=== PATIENT | male | born 1990 | race Two or more races ===

== ENCOUNTER 2022-01-25 08:47 | Emergency (ER) | payer MEDICAID, OTHER ==
[~2022-01-25] VITALS: Ht 172.7 cm; Wt 95.4 kg
[2022-01-25 10:03] VITALS: BP 114/64
[2022-01-25] MEDS ORDERED: TETANUS-DIPTH-ACEL PERTUSSIS 0.5ML SYR Tdap IM ONE (10:15)
== END 2022-01-25 10:07 | disposition home or self-care (01) ==
LOC: ER 08:50
DX: S61.210A Laceration without foreign body of right index finger without damage to nail, initial encounter (principal); W26.9XXA Contact with unspecified sharp object(s), initial encounter; Y93.89 Activity, other specified; Y92.89 Other specified places as the place of occurrence of the external cause; Y99.8 Other external cause status
CPT/HCPCS: 12001; 90471; 90715

== ENCOUNTER 2022-02-07 15:53 | Emergency (ER) | payer MEDICAID, OTHER ==
[~2022-02-07] VITALS: Ht 172.7 cm; Wt 103.9 kg
[2022-02-07 16:25] VITALS: BP 121/68
== END 2022-02-07 17:54 | disposition home or self-care (01) ==
LOC: ER 15:53
DX: S61.210D Laceration without foreign body of right index finger without damage to nail, subsequent encounter (principal); X58.XXXD Exposure to other specified factors, subsequent encounter

== ENCOUNTER 2023-01-22 15:14 | Emergency (ER) | payer OTHER ==
[~2023-01-22] VITALS: Ht 172.7 cm; Wt 92.5 kg
[2023-01-22 15:20] VITALS: BP 127/81; PULSE 73; RESP 18; TEMP 99; O2SAT 99
[2023-01-22] MEDS ORDERED: ACET500T58 PO (18:47)
[2023-01-22] MEDS ORDERED: AMOX875T4 PO (18:47)
== END 2023-01-22 19:50 | disposition home or self-care (01) ==
LOC: ER 15:14
DX: S01.511A Laceration without foreign body of lip, initial encounter (principal); Z79.1 Long term (current) use of non-steroidal anti-inflammatories (NSAID); Z79.2 Long term (current) use of antibiotics; W26.8XXA Contact with other sharp object(s), not elsewhere classified, initial encounter; Y93.89 Activity, other specified; Y92.89 Other specified places as the place of occurrence of the external cause; Y99.8 Other external cause status
CPT/HCPCS: 12011; 99283; J2001

== ENCOUNTER 2023-10-31 15:02 | Emergency (ER) | payer SELFPAY ==
[~2023-10-31] VITALS: Ht 172.7 cm; Wt 87.2 kg
[~2023-10-31 15:02] MED LIST: ACET500T58 PO; AMOX875T4 PO
[2023-10-31 18:17] LABS: Urine Bacteria None Seen /hpf (None Seen)
[2023-10-31 18:34] LABS: Urine Blood Negative /uL (Negative); Urine Clarity Turbid (Clear); Urine Color Yellow (Yellow); Urine Hyaline Cast MOD /lpf (0 - 2); Urine Mucus FEW (None Seen); Urine Protein, UAD 1+ (Negative); Urine Specific Gravity 1.033 (1.001-1.035); Urine Urobilinogen Normal (Negative); Urine WBC 5 /hpf (0 - 3)
[2023-10-31 18:37] LABS: Amphetamine Screen, Urine Pos (NEGATIVE); Barbiturate Scree,Urine Neg (NEGATIVE); Benzodiazephine Screen, Urine Neg (NEGATIVE); Cannabinoid Screen, Urine Neg (NEGATIVE); Cocaine Screen, Urine Neg (NEGATIVE); Opiate Scree,Urine Neg (NEGATIVE); Phencyclidine Screen, Urine Neg (NEGATIVE)
[2023-10-31 19:21] LABS: Basophils # (auto) 0.1 10 ^3/uL (0-0.2); Basophils % (auto) 0.5 % (0.0-2.0); Eosinophils # (auto) 0 10 ^3/uL (0-0.8); Eosinophils % (auto) 0.4 % (0.0-7.0); Hematocrit 47.1 % (41.0-53.0); Hemoglobin 16.4 g/dL (13.5-17.5); Lymphocytes % (auto) 16.2 % (10.0-50.0); Mean Corpuscular Hemoglobin 30.8 pg (28.0-32.0); Mean Corpuscular Hgb Conc. 34.9 g/dL (32.0-36.0); Mean Corpuscular Volume 88.3 fL (80.0-100.0); Neutrophils # (auto) 9.1 10 ^3/uL (1.6-8.6); Neutrophils % (auto) 74.9 % (37.0-80.0); Nucleated Red Blood Cells % 0.1 %; Red Blood Cells 5.33 10^6/uL (4.5-5.90); Red Cell Distribution Width 13.8 % (11.8-14.3); White Blood Cell 12.1 10^3/uL (4.4-10.8)
[2023-10-31 19:38] LABS: Alanine Aminotransferase 131 U/L (7-40); Albumin 4.8 g/dL (3.2-4.8); Alkaline Phosphatase 134 U/L (46-116); Anion Gap 7 (5-15); Aspartate Aminotransferase 54 U/L (13-40); BUN/Creatinine Ratio 15.1 (10.0-20.0); Bilirubin, Total 1.7 mg/dL (0.2-1.0); Blood Alcohol < 3.0 mg/dL (<10); Blood Urea Nitrogen 16 mg/dL (9-23); Carbon Dioxide 26 mmol/L (20-30); Chloride 103 mmol/L (98-107); Glucose 101 mg/dL (74-106); Potassium 3.6 mmol/L (3.5-5.1); Sodium 136 mmol/L (136-145)
[2023-10-31 19:58] LABS: Lipase 77 U/L (12-53)
[2023-10-31 20:30] VITALS: BP 111/71; PULSE 97; RESP 12; TEMP 97.8; O2SAT 97
[2023-11-01] MEDS ORDERED: OLAN20TA PO (01:17)
[2023-11-01] MEDS: SODIUM CHLORIDE 0.9% 1,000 ML IV ONE (02:15)
== END 2023-11-01 04:55 | disposition home or self-care (01) ==
LOC: ER 15:02
DX: R44.0 Auditory hallucinations (principal); R44.1 Visual hallucinations; F15.10 Other stimulant abuse, uncomplicated
CPT/HCPCS: 36415; 74176; 80053; 80307; 80320; 81001; 83605; 83690; 85025; 96360; 99284; J7030

== ENCOUNTER 2024-01-12 14:21 | Emergency (ER) | payer SELFPAY ==
[~2024-01-12] VITALS: Ht 182.9 cm; Wt 86.0 kg
[~2024-01-12 14:21] MED LIST changes: +OLAN20TA PO
[2024-01-12 14:50] VITALS: BP 157/114; PULSE 110; RESP 22; TEMP 98.4; O2SAT 98
[2024-01-12] MEDS: LIDOCAINE 1% (LOCAL ANESTH.) PF 5ml SDV ID ONE (15:07)
[2024-01-12 15:43] LABS: Chloride 106 mmol/L (98-107); Potassium 3.7 mmol/L (3.5-5.1); Sodium 141 mmol/L (136-145)
[2024-01-12 15:44] LABS: Anion Gap 11 (5-15); Carbon Dioxide 24 mmol/L (20-30)
[2024-01-12 15:45] LABS: Calcium 9.2 mg/dL (8.7-10.4)
[2024-01-12 15:49] LABS: BUN/Creatinine Ratio 7.9 (10.0-20.0); Blood Urea Nitrogen 7 mg/dL (9-23); Glucose 106 mg/dL (74-106)
[2024-01-12 15:51] LABS: Basophils # (auto) 0.1 10 ^3/uL (0-0.2); Basophils % (auto) 0.7 % (0.0-2.0); Eosinophils # (auto) 0 10 ^3/uL (0-0.8); Eosinophils % (auto) 0.2 % (0.0-7.0); Hemoglobin 16.1 g/dL (13.5-17.5); Lymphocytes # (auto) 3.2 10 ^3/uL (0.4-5.4); Lymphocytes % (auto) 25.8 % (10.0-50.0); Mean Corpuscular Hemoglobin 31.5 pg (28.0-32.0); Mean Corpuscular Volume 90.1 fL (80.0-100.0); Monocytes # (auto) 0.6 10 ^3/uL (0-1.3); Monocytes % (auto) 4.5 % (0.0-12.0); Neutrophils # (auto) 8.6 10 ^3/uL (1.6-8.6); Neutrophils % (auto) 68.8 % (37.0-80.0); Nucleated Red Blood Cells % 0.2 %; Red Blood Cells 5.11 10^6/uL (4.5-5.90); Red Cell Distribution Width 13.2 % (11.8-14.3); White Blood Cell 12.6 10^3/uL (4.4-10.8)
[2024-01-12] MEDS: SODIUM CHLORIDE 0.9% 1,000 ML IVB ONE (16:03)
[2024-01-12 16:18] LABS: Blood Alcohol 488.4 mg/dL (<10)
[2024-01-12] MEDS: TETANUS-DIPTH-ACEL PERTUSSIS 0.5ML SYR Tdap IM ONE (16:41)
== END 2024-01-12 16:53 | disposition left against medical advice (07) ==
LOC: EDUNIT# 14:21 → ER 14:21 → EDBD 14:21 → ER 16:53
DX: S01.112A Laceration without foreign body of left eyelid and periocular area, initial encounter (principal); F10.129 Alcohol abuse with intoxication, unspecified; Z79.899 Other long term (current) drug therapy; X58.XXXA Exposure to other specified factors, initial encounter; Y93.89 Activity, other specified; Y92.89 Other specified places as the place of occurrence of the external cause; Y99.8 Other external cause status
CPT/HCPCS: 12014; 36415; 70450; 80048; 80320; 85025; 96360; 99284; J7030

== ENCOUNTER 2024-04-18 17:13 | Emergency (ER) | payer MEDICAID, OTHER ==
[~2024-04-18] VITALS: Ht 175.3 cm; Wt 110.0 kg
--- NOTE | 2024-04-18 17:25 | ED.PDOC ---
Altered Mental Status HPI Comments 33 y.o male presents to the ED via EMS for an evaluation of ETOH intoxication. EMS reports patient was in front of a liquor store, stumbling around and falling. Systems Software Manager of the store called 911 and on scene patient was reportedly noted to be snoring on the floor. Patient later became combative when EMS attempted to assist him to the gurney and 4 point restraints were placed. Patient refused any treatment, unable to measure a blood pressure. Medical information is unobtainable at this time, as patient is not verbally responsive to questioning. Time Seen by MD: 17:19 Primary Care Provider: NONE Reviewed Notes: Nurses Notes, Head Waiter/Waitress Notes, Medications, Allergies Allergies: Coded Allergies: NO KNOWN ALLERGIES (Unverified , 01/25/22) Home Meds Active Scripts Olanzapine (Zyprexa) 20 Mg Tab, 5 MG PO HS for 7 Days, #7 TAB Prov:ALMA CARVAJAL MD 11/01/23 Acetaminophen (Acetaminophen) 500 Mg Tab, 500 MG PO QIDP, #30 TAB 0 Refills Prov:TRACEE POWELL 01/22/23 Amoxicillin & Pot Clavulanate (Amoxicillin/Potassium Cla) 875 Mg Tab, 1 TAB PO BID for 7 Days, #14 TAB 0 Refills Prov:TRACEE POWELL 01/22/23 Information Source: Emergency Med Personnel Mode of Arrival: EMS Severity: Moderate, Other (patient is combative and intoxicated ) Timing: Hours Duration: Since onset Quality: Change in Behavior Associated Signs and Symptoms: Other Past Medical History PAST MEDICAL HISTORY: Unobtainable Surgical History: Unobtainable Family History Family History: Unknown Social History Smoker: Unobtainable Alcohol: Heavy Drugs: Unobtainable Lives In: Unobtainable Unable to Obtain due to: Altered Mental Status, Other (Patient is uncooperative and combative ) Physical Exam General Appearance: No Apparent Distress HEENT: PERRL/EOMI, Other (Mucous membranes. No evidence of head trauma) Neck: Full Range of Motion, Non-Tender, Normal Inspection, Supple Respiratory: Lungs Clear, No Accessory Muscle Use, No Respiratory Distress, Normal Breath Sounds Cardiovascular: No Edema, No JVD, Regular Rate/Rhythm Breast Exam: Deferred Gastrointestinal: Non Tender, Soft Genitalia: Deferred Pelvic: Deferred Rectal: Deferred Extremities: Normal inspection, Normal range of motion, Non-tender, No pedal edema Neurologic: Alert, Other (Moves all extremities with adequate strength and tone, not verbally responsive to questioning, does not follow commands) Cerebellar Function: Unable to Test Reflexes: NOT DONE Skin: Dry, Normal Color, Warm Lymphatic: NOT DONE Was a procedure done? Was a procedure done?: No Differential Diagnosis (ALOC) Differential Diagnosis: Dehydration, Hypoglycemia, Encephalopathy, Closed Head Injury, SAH, Drug Overdose, ETOH Intoxication, Other (Electrolyte imbalance, among others) X-Ray, Labs, Meds, VS Vital Signs Date Time Temp Pulse Resp B/P (MAP) Pulse Ox O2 Delivery O2 Flow Rate FiO2 04/18/24 19:30 Room Air* 0 21 04/18/24 19:00 110 16 108/66 (80) 92 04/18/24 18:56 104 16 94 Room Air* 0 21 04/18/24 18:56 104 16 107/63 (78) 94 04/18/24 17:16 98.5 113 22 133/78 (96) 100 Lab Test 04/18/24 17:43 Range/Units White Blood Count 9.7 4.4-10.8 10^3/uL Red Blood Count 4.77 4.5-5.90 10^6/uL Hemoglobin 14.9 13.5-17.5 g/dL Hematocrit 42.3 41.0-53.0 % Mean Corpuscular Volume 88.8 80.0-100.0 fL Mean Corpuscular Hemoglobin 31.2 28.0-32.0 pg Mean Corpuscular Hemoglobin Concent 35.1 32.0-36.0 g/dL Red Cell Distribution Width 12.7 11.8-14.3 % Platelet Count 337 140-450 10^3/uL Mean Platelet Volume 7.0 6.9-10.8 fL Neutrophils (%) (Auto) 60.2 37.0-80.0 % Lymphocytes (%) (Auto) 36.2 10.0-50.0 % Monocytes (%) (Auto) 2.8 0.0-12.0 % Eosinophils (%) (Auto) 0.4 0.0-7.0 % Basophils (%) (Auto) 0.4 0.0-2.0 % Neutrophils # (Auto) 5.9 1.6-8.6 10 ^3/uL Lymphocytes # (Auto) 3.5 0.4-5.4 10 ^3/uL Monocytes # (Auto) 0.3 0-1.3 10 ^3/uL Eosinophils # (Auto) 0 0-0.8 10 ^3/uL Basophils # (Auto) 0 0-0.2 10 ^3/uL Nucleated Red Blood Cells 0.1 % Sodium Level 153 H 136-145 mmol/L Potassium Level 3.4 L 3.5-5.1 mmol/L Chloride Level 117 H 98-107 mmol/L Carbon Dioxide Level 25 20-31 mmol/L Anion Gap 11 5-15 Blood Urea Nitrogen 8 L 9-23 mg/dL Creatinine 0.75 0.700-1.30 mg/dL Glomerular Filtration Rate Calc 124 >90 mL/min BUN/Creatinine Ratio 10.7 10.0-20.0 Serum Glucose 96 74-106 mg/dL Calcium Level 8.2 L 8.7-10.4 mg/dL Ammonia < 10 L 11-32 umol/L Plasma/Serum Blood Alcohol 410.2 *H <10 mg/dL Current Medications Medications (Trade) Dose Ordered Sig/Gerard Route Start Time Stop Time Status Last Admin Sodium Chloride 2,000 ml @ 1,000 mls/hr Q2H ONCE IV 04/18/24 17:30 04/18/24 19:29 DC 04/18/24 17:30 Sodium Chloride 1,000 ml @ 1,000 mls/hr Q1H ONCE IV 04/18/24 20:00 04/18/24 20:59 DC 04/18/24 20:22 Potassium Chloride (Klor-Con Tablet) 40 meq ONCE ONCE PO 04/18/24 20:00 04/18/24 20:15 DC 04/18/24 20:22 PROCEDURE(s): HWOCT - HEAD WITHOUT CONTRAST REASON: aloc ORDER NUMBER(s): [id number], ACCESSION NUMBER(s): [id number] EXAM: CT HEAD WITHOUT CONTRAST INDICATION: aloc TECHNIQUE: CT of the head without intravenous contrast. Radiation Dose Information: CT Dose: CTDI volume is 60.67 mGy. Dose-length product is 1195.48 mGy*cm The dose indicators for CT are the volume Computed Tomography (CT) Dose Index ( CTDIvol) and the Dose Length Product (DLP), and are measured in units of mGy and mGy-cm, respectively. These indicators are not patient dose, but values generated from the CT scanner acquisition factors. The report includes radiation exposure data for exposures received during this examination. COMPARISON: CT HEAD WITHOUT CONTRAST on DOS: 01/12/24 FINDINGS: There is no evidence of acute intracranial hemorrhage, extra-axial collection, mass effect, midline shift, herniation or hydrocephalus. The ventricles, sulci and cisterns are age appropriate. The van-white differentiation is intact. Patchy periventricular and subcortical white matter hypoattenuation is nonspecific but may be related to small vessel ischemic disease. The visualized paranasal sinuses and mastoid air cells are clear. The surrounding soft tissues and osseous structures are unremarkable. IMPRESSION: 1. No acute intracranial hemorrhage 2. No CT findings of territorial ischemia. X-Ray, Labs, Meds, VS Comment 33-year-old male with unknown past medical history brought in by EMS from a local liquor store with altered mental status Vitals remarkable for heart rate 113, respiratory rate 22 Exam remarkable for altered mental status. Patient is not verbally responsive to questions and does not follow commands. No gross focal neurologic deficit. CT head IMPRESSION: 1. No acute intracranial hemorrhage 2. No CT findings of territorial ischemia. CBC, basic metabolic panel remarkable for sodium 153, potassium 3.4, chloride 117, calcium 8.2, no other abnormalities of acute significance Ammonia level less than 10 Alcohol 410.2 Urine drug screen pending Patient received the following treatment in the ED: 2 L 0.9 normal saline IV bolus Re-evaluation at 10:00 p.m., patient is somnolent, arousable, now minimally verbal, still appears intoxicated with alcohol. Patient will be placed on ED observation and is likely to be stable for discharge pending sobriety. Patient endorsed to the overnight ED physician pending sobriety. Time of 1ST Reevaluation: 17:22 Reevaluation 1ST: Unchanged Time of 2ND Reevaluation: 22:00 Reevaluation 2ND: Improved Patient Education/Counseling: Other (patient is uncooperative and combative ) Family Education/Counseling: No Family Present Departure 1 Departure Time of Disposition: 22:00 Impression: Primary Impression: Alcohol intoxication Qualified Codes: F10.920 - Alcohol use, unspecified with intoxication, uncomplicated Disposition: 30 STILL A PATIENT Condition: Fair Critical Care Note Critical Care Time?: No Stability Stability form required: No I personally scribed for KATHERINE CANO MD ([facility]) on 04/18/24 at 17:25. Electronically submitted by Mandy Faust ([facility]). I personally scribed for KATHERINE CANO MD ([facility]) on 04/18/24 at 18:59. Electronically submitted by Mandy Faust ([facility]). KATHERINE CANO MD Apr 18, 2024 17:25
[2024-04-18] MEDS: SODIUM CHLORIDE 0.9% 2,000 ML IV ONE (17:30)
[2024-04-18 18:35] LABS: Basophils # (auto) 0 10 ^3/uL (0-0.2); Basophils % (auto) 0.4 % (0.0-2.0); Eosinophils # (auto) 0 10 ^3/uL (0-0.8); Eosinophils % (auto) 0.4 % (0.0-7.0); Hematocrit 42.3 % (41.0-53.0); Hemoglobin 14.9 g/dL (13.5-17.5); Lymphocytes # (auto) 3.5 10 ^3/uL (0.4-5.4); Lymphocytes % (auto) 36.2 % (10.0-50.0); Mean Corpuscular Hemoglobin 31.2 pg (28.0-32.0); Mean Corpuscular Hgb Conc. 35.1 g/dL (32.0-36.0); Mean Corpuscular Volume 88.8 fL (80.0-100.0); Monocytes # (auto) 0.3 10 ^3/uL (0-1.3); Monocytes % (auto) 2.8 % (0.0-12.0); Neutrophils # (auto) 5.9 10 ^3/uL (1.6-8.6); Neutrophils % (auto) 60.2 % (37.0-80.0); Nucleated Red Blood Cells % 0.1 %; Platelet Count (auto) 337 10^3/uL (140-450); Red Blood Cells 4.77 10^6/uL (4.5-5.90); Red Cell Distribution Width 12.7 % (11.8-14.3); White Blood Cell 9.7 10^3/uL (4.4-10.8)
[2024-04-18 18:44] LABS: Chloride 117 mmol/L (98-107); Potassium 3.4 mmol/L (3.5-5.1); Sodium 153 mmol/L (136-145)
[2024-04-18 18:45] LABS: Anion Gap 11 (5-15); Calcium 8.2 mg/dL (8.7-10.4); Carbon Dioxide 25 mmol/L (20-31)
[2024-04-18 18:50] LABS: BUN/Creatinine Ratio 10.7 (10.0-20.0); Blood Urea Nitrogen 8 mg/dL (9-23); Glucose 96 mg/dL (74-106)
[2024-04-18 18:56] VITALS: PULSE 104; RESP 16; O2SAT 94
[2024-04-18 19:09] LABS: Blood Alcohol 410.2 mg/dL (<10)
[2024-04-18] MEDS: SODIUM CHLORIDE 0.9% 1,000 ML IV ONE (20:22)
[2024-04-18] MEDS: POTASSIUM CHL 20 Meq TABLET PO ONE (20:22)
--- NOTE | 2024-04-18 20:28 | DVH ---
EXAM: CT HEAD WITHOUT CONTRAST INDICATION: aloc TECHNIQUE: CT of the head without intravenous contrast. Radiation Dose Information: CT Dose: CTDI volume is 60.67 mGy. Dose-length product is 1195.48 mGy*cm The dose indicators for CT are the volume Computed Tomography (CT) Dose Index (CTDIvol) and the Dose Length Product (DLP), and are measured in units of mGy and mGy-cm, respectively. These indicators are not patient dose, but values generated from the CT scanner acquisition factors. The report includes radiation exposure data for exposures received during this examination. COMPARISON: CT HEAD WITHOUT CONTRAST on DOS: 01/12/24 FINDINGS: There is no evidence of acute intracranial hemorrhage, extra-axial collection, mass effect, midline s hift, herniation or hydrocephalus. The ventricles, sulci and cisterns are age appropriate. The van-white differentiation is intact. Patchy periventricular and subcortical white matter hypoattenuation is nonspecific but may be related to small vessel ischemic disease. The visualized paranasal sinuses and mastoid air cells are clear. The surrounding soft tissues and osseous structures are unremarkable. IMPRESSION: 1. No acute intracranial hemorrhage 2. No CT findings of territorial ischemia.
--- NOTE | 2024-04-19 04:42 | ED.PDOC ---
Departure 1 Departure Time of Disposition: 04:41 (Patient is now clinically sober. He is ambulating without assistance tolerating p.o. and feeling better.) Impression: Primary Impression: Alcohol intoxication Qualified Codes: F10.920 - Alcohol use, unspecified with intoxication, uncomplicated Disposition: 01 HOME / SELF CARE / HOMELESS Condition: Stable Additional Instructions: You were intoxicated. It is important to only drink in moderation. If you need help quitting you can call (HELP). If your symptoms worsen or you have any other concerns then please return to the ER. Discharged With: Self DARRELL GONZALEZ MD Apr 19, 2024 04:42
[2024-04-19 04:47] VITALS: BP 127/78; PULSE 94; RESP 18; O2SAT 96
== END 2024-04-19 04:42 | disposition home or self-care (01) ==
LOC: EDUNIT# 17:13 → EDBD 17:13 → ER 17:26
DX: F10.129 Alcohol abuse with intoxication, unspecified (principal); Z79.899 Other long term (current) drug therapy
CPT/HCPCS: 36415; 70450; 80048; 80320; 82140; 85025; 96360; 96361; 99285; J7030

== ENCOUNTER 2024-07-14 12:39 | Emergency (ER) | payer MEDICAID ==
[~2024-07-14] VITALS: Ht 172.7 cm; Wt 90.1 kg
[2024-07-14 12:40] VITALS: BP 147/81; PULSE 105; RESP 16; O2SAT 95
[2024-07-14] MEDS ORDERED: SODIUM CHLORIDE 0.9% 1,000 ML IVB ONE (13:00)
--- NOTE | 2024-07-14 13:03 | ED.PDOC ---
History of Present Illness HPI Comments 33 y/o M, ASHKAN presents to the ED for CC ALOC. Per EMS, patient was found at bus stop unresponsive by business process associate. Upon arrival of EMS to scene, patient had pinpoint pupils and was unresponsive to stimuli. Per EMS, two Narcan's were administered with no response; patient gained consciousness in route to ED. No other medical history obtainable at this time; patient A&OX0. Time Seen by MD: 12:50 Primary Care Provider: UNKNOWN Reviewed Notes: Nurses Notes, Magician/Illusionist Notes, Medications, Allergies Allergies: Coded Allergies: NO KNOWN ALLERGIES (Unverified , 01/25/22) Home Meds Active Scripts Olanzapine (Zyprexa) 20 Mg Tab, 5 MG PO HS for 7 Days, #7 TAB Prov:ALMA CARVAJAL MD 11/01/23 Acetaminophen (Acetaminophen) 500 Mg Tab, 500 MG PO QIDP, #30 TAB 0 Refills Prov:TRACEE POWELL 01/22/23 Amoxicillin & Pot Clavulanate (Amoxicillin/Potassium Cla) 875 Mg Tab, 1 TAB PO BID for 7 Days, #14 TAB 0 Refills Prov:TRACEE POWELL 01/22/23 Information Source: Emergency Med Personnel Mode of Arrival: EMS Severity: Mild Duration: Since onset Prehospital treatment: None Past Medical History PAST MEDICAL HISTORY: Unobtainable Surgical History: Unobtainable Family History Family History: Unknown Social History Smoker: Unobtainable Alcohol: Heavy Drugs: Unobtainable Lives In: Unobtainable Unable to Obtain due to: Altered Mental Status Physical Exam General Appearance: Mild Distress, Other (The patient was alcohol on his breath) HEENT: Normal ENT Inspection, Pharynx Normal, TMs Normal Neck: Full Range of Motion, Non-Tender, Normal, Normal Inspection Respiratory: Chest Non-Tender, Lungs Clear, No Accessory Muscle Use, No Respiratory Distress, Normal Breath Sounds Cardiovascular: No Edema, No JVD, No Murmur, No Gallop, Normal Peripheral Pul ses, Regular Rate/Rhythm Breast Exam: Deferred Gastrointestinal: No Organomegaly, Non Tender, No Pulsatile Mass, Normal Bowel Sounds, Soft Genitalia: Deferred Pelvic: Deferred Rectal: Deferred Extremities: No calf tenderness, Normal capillary refill, Normal inspection, Normal range of motion, Non-tender, No pedal edema Musculoskeletal : Apperance: Normal Neurologic: adoption agent II-XII nml as Tested, No Motor Deficits, Normal Affect, Normal Mood, No Sensory Deficits, Other (The patient was somewhat confused but seems to be intoxicated) Cerebellar Function: Normal Reflexes: Normal Skin: Dry, Normal Color, Warm Lymphatic: No Adenopathy Was a procedure done? Was a procedure done?: No Differential Dx Considerations may include: Alcohol intoxication, substance abuse X-Ray, Labs, Meds, VS Vital Signs Date Time Temp Pulse Resp B/P (MAP) Pulse Ox O2 Delivery O2 Flow Rate FiO2 07/14/24 12:40 98.0 105 16 147/81 (103) 95 The patient was decided to leave the emergency department's Initially, the patient was on the ambulance gurney and the gurney tipped over. We then the patient was to treatment area on a chair but the patient then got up and urinated all over the floor. The area was then cleaned but the patient then decided that he was going to leave. The patient was seen leave in the emergency department's Time of 1ST Reevaluation: 13:20 Reevaluation 1ST: Unchanged Time of 2ND Reevaluation: 16:05 Reevaluation 2ND: Improved Patient Education/Counseling: Diagnosis, Treatment, Prognosis Family Education/Counseling: No Family Present Additional Information - I reviewed the following notes from patient's past medical encounters: 05/24/24 DX: ETOH, 04/18/24 DX: ETOH - The following tests were ordered, and results were reviewed by me: CBC, DRUG SCREEN, BLOOD ALCOHOL, BMP - Additional information was gathered from interviewing the following independent Historian: EMT - I discussed treatments and results with medical personnel and: NONE Departure 1 Departure Time of Disposition: 16:05 Impression: Primary Impression: Alcohol intoxication Qualified Codes: F10.920 - Alcohol use, unspecified with intoxication, uncomplicated Disposition: 07 LEFT AWOL/ELOPED Condition: Fair Critical Care Note Critical Care Time?: No Stability Stability form required: No Heart Score Heart Score: Heart Score Response (Comments) Value History N/A 0 EKG N/A 0 Age N/A 0 Risk Factors N/A 0 Troponin N/A 0 Total 0 I personally scribed for OLIVIA HARVEY MD ([email or web address]) on 07/14/24 at 13:03. Electronically submitted by Magalie Guzman ([email or web address]). I personally scribed for OLIVIA HARVEY MD ([email or web address]) on 07/14/24 at 13:38. Electronically submitted by Magalie Guzman ([email or web address]). OLIVIA HARVEY MD Jul 14, 2024 13:03
== END 2024-07-14 16:30 | disposition left against medical advice (07) ==
LOC: ER 12:39 → EDBD 12:39 → ER 16:30
DX: F10.129 Alcohol abuse with intoxication, unspecified (principal); Y90.9 Presence of alcohol in blood, level not specified